=== PATIENT | male | born 1965 | race Caucasian/White ===

== ENCOUNTER 2023-06-22 13:55 | Emergency (ER) | payer OTHER ==
[~2023-06-22] VITALS: Ht 175.2 cm; Wt 99.8 kg
== END 2023-06-22 15:48 | disposition home or self-care (01) ==
LOC: ED 13:55
DX: S51.812A Laceration without foreign body of left forearm, initial encounter (principal); W26.0XXA Contact with knife, initial encounter; Y93.89 Activity, other specified; Y92.89 Other specified places as the place of occurrence of the external cause; Y99.8 Other external cause status

== ENCOUNTER 2023-07-01 07:11 | Emergency (ER) | payer OTHER ==
[~2023-07-01] VITALS: Ht 175.2 cm; Wt 86.2 kg
== END 2023-07-01 07:35 | disposition home or self-care (01) ==
LOC: ED 07:11
DX: S61.512D Laceration without foreign body of left wrist, subsequent encounter (principal); X58.XXXD Exposure to other specified factors, subsequent encounter